=== PATIENT | female | born 1965 | race Caucasian/White ===

== ENCOUNTER → 2022-10-01 09:37 | Outpatient (BNVA) | payer OTHER, SELFPAY | PROVIDERS: Visit Provider Nurse Practitioner Family | DX: R30.0 Dysuria (principal); N39.0 Urinary tract infection, site not specified; R31.9 Hematuria, unspecified; N12 Tubulo-interstitial nephritis, not specified as acute or chronic; R10.31 Right lower quadrant pain; R10.32 Left lower quadrant pain | CPT/HCPCS: 81000; 87077; 87086; 87184 ==